=== PATIENT | male | born 1970 | race Two or more races ===

== ENCOUNTER 2017-09-14 21:36 | Emergency (ER) | payer BC, MEDICAID, OTHER ==
[~2017-09-14] VITALS: Ht 172.7 cm; Wt 90.7 kg
[2017-09-14 21:42] VITALS: BP 142/81
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
--- NOTE | 2017-09-14 22:47 | NUR ---
Patient eloped from facility. ER MD notified.
== END 2017-09-14 22:55 | disposition left against medical advice (07) ==
LOC: ER 21:42
DX: Z53.21 Procedure and treatment not carried out due to patient leaving prior to being seen by health care provider (principal); R51 Headache
CPT/HCPCS: A4606; Z7610

== ENCOUNTER → 2020-10-09 | Emergency (ER) | payer BC ==
[~2020-10-09] VITALS: Ht 175.3 cm; Wt 83.9 kg
[~2020-10-09] MED LIST: CEFTRIAXONE 1 G VIAL IM ONE; CEFTRIAXONE 500 MG VIAL ONE; DOXY100C2 PO; LIDOCAINE /MPF 1% VIAL 5 ML VIAL ONE; NYST5ORA PO
--- NOTE | 2020-10-09 08:30 | NUR ---
The patient bibs for c/o mouth sores x 2 days, bruising to L hip s/p fall. Rates pain on left hip 07/26. Denies numbness/tingling in the extremity. Respiration regular and unlabored. Will continue to monitor the patient.
[2020-10-09 09:03] VITALS: BP 137/84
--- NOTE | 2020-10-09 09:03 | NUR ---
The patient alert and oriented x4. Patient discharged to home in stable condition. Written and verbal after care instructions given. Patient verbalizes understanding of instruction.
--- NOTE | 2020-10-09 09:04 | NUR ---
unable to depart the patient from [facility]
== END | disposition home or self-care (01) ==
LOC: ER 10:37
DX: S80.12XA Contusion of left lower leg, initial encounter (principal); S30.0XXA Contusion of lower back and pelvis, initial encounter; B37.0 Candidal stomatitis; K14.9 Disease of tongue, unspecified; F15.10 Other stimulant abuse, uncomplicated; Z20.2 Contact with and (suspected) exposure to infections with a predominantly sexual mode of transmission; W01.0XXA Fall on same level from slipping, tripping and stumbling without subsequent striking against object, initial encounter; Y93.89 Activity, other specified; Y92.89 Other specified places as the place of occurrence of the external cause; Y99.8 Other external cause status
CPT/HCPCS: 76882; 87491; 87591; 87806; 96372; 99284; J0696; J3490

== ENCOUNTER 2022-02-28 08:48 | Emergency (ER) | payer BC ==
[~2022-02-28] VITALS: Ht 177.8 cm; Wt 78.9 kg
[~2022-02-28 08:48] MED LIST changes: -CEFTRIAXONE 1 G VIAL IM ONE; -CEFTRIAXONE 500 MG VIAL ONE; -LIDOCAINE /MPF 1% VIAL 5 ML VIAL ONE
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
--- NOTE | 2022-02-28 09:15 | NUR ---
SECURITY AT BEDSIDE FOR WANDING
--- NOTE | 2022-02-28 09:28 | NUR ---
URINE SAMPLE COLLECTED AND SENT TO LAB
--- NOTE | 2022-02-28 09:30 | NUR ---
RAPID COVID SWAB DONE AND SENT TO LAB
[2022-02-28 09:51] LABS: BASOPHILS % (AUTO) 0.4 % (0.0-2.0); EOSINOPHILS % (AUTO) 1.8 % (0.0-6.0); HEMATOCRIT 42 % (39-51); HEMOGLOBIN 13.9 g/dL (13.5-17.5); LYMPHOCYTES # (AUTO) 1.8 K/uL (0.8-4.8); LYMPHOCYTES % (AUTO) 18.3 % (20.0-44.0); MEAN CORPUSCULAR HGB CONC 33 g/dl (31.0-36.0); MEAN CORPUSCULAR VOLUME 88 fL (80-96); MONOCYTES # (AUTO) 0.6 K/uL (0.1-1.30); NEUTROPHILS # (AUTO) 7.2 K/uL (1.8-8.9); NEUTROPHILS % (AUTO) 73.5 % (43.0-81.0); PLATELET COUNT (AUTO) 346 K/uL (150-450); RED BLOOD CELL COUNT(AUTO) 4.71 MIL/uL (4.5-6.0); WHITE BLOOD COUNT (AUTO) 9.8 K/uL (4.3-11.0)
[2022-02-28 10:00] LABS: BILIRUBIN,URINE 1+ (NEGATIVE); COLOR,URINE YELLOW (YELLOW); LEUKOCYTE ESTERASE ,URINE NEGATIVE (NEGATIVE); NITRITE, URINE NEGATIVE (NEGATIVE); PROTEIN,URINE NEGATIVE (NEGATIVE); UGLUCOSE NEGATIVE (NEGATIVE)
[2022-02-28 10:08] LABS: ALANINE AMINOTRANSFERASE 27 U/L (12-78); ALBUMIN 3.4 g/dL (3.4-5.0); ALCOHOL, BLOOD < 3 mg/dL (0-0); ALKALINE PHOSPHATASE 66 U/L (46-116); ASPARTATE AMINOTRANSFERASE 23 U/L (15-37); BILIRUBIN,DIRECT 0.1 mg/dL (0.0-0.2); BILIRUBIN,TOTAL 0.5 mg/dL (0.2-1.0); CALCIUM, SERUM 8.8 mg/dL (8.5-10.1); CARBON DIOXIDE 30 mmol/L (21-32); CHLORIDE 103 mmol/L (98-107); CREATININE 1.1 mg/dL (0.6-1.3); GLUCOSE 136 mg/dL (74-106); POTASSIUM 3.9 mmol/L (3.5-5.1); SODIUM SERUM 137 mmol/L (136-145); TOTAL PROTEIN, SERUM 6.4 g/dL (6.4-8.2); UREA NITROGEN, BLOOD 17 mg/dL (7-18)
[2022-02-28 10:13] LABS: ACETAMINOPHEN 0 ug/ml (10-30)
[2022-02-28 10:15] LABS: BACTERIA,URINE Rare /HPF (None Seen); RBC,URINE 0-2 /HPF (0-2); SQUAMOUS EPITHELIAL CELL,UR Few /HPF (None Seen)
--- NOTE | 2022-02-28 12:28 | NUR ---
LUNCH TRAY PROV TO PT, OTIS WELL
--- NOTE | 2022-02-28 18:45 | NUR ---
[facility]ED CLINICALS [facility]
[2022-02-28] MEDS ORDERED: ACETAMINOPHEN ES 500 MG TABLET ONE (23:05)
--- NOTE | 2022-02-28 23:14 | NUR ---
ACCEPTED AT [facility] UNDER MD MENDEZ REPORT [phone]
--- NOTE | 2022-02-28 23:17 | NUR ---
[facility] CALLED ETA 2-2&1/2 HOURS
[2022-02-28] MEDS ORDERED: ACETAMINOPHEN ES 500 MG TABLET PO ONE (23:30)
--- NOTE | 2022-03-01 00:15 | NUR ---
report given to delfino
[2022-03-01 03:41] VITALS: BP 130/71
--- NOTE | 2022-03-01 03:41 | NUR ---
patient verbalized "i am not suicidal", left in no distress. aware.
== END 2022-03-01 03:41 | disposition home or self-care (01) ==
LOC: ER 08:49
DX: F22 Delusional disorders (principal); F31.9 Bipolar disorder, unspecified; Z59.00 Homelessness unspecified; F15.10 Other stimulant abuse, uncomplicated; Z20.822 Contact with and (suspected) exposure to COVID-19; R82.81 Pyuria
CPT/HCPCS: 99284; 85025; 80048; 87086; 80076; 81001; 36415; 87426; 80143; 80320; 80307; C9803; G0480